=== PATIENT | female | born 1980 | race Caucasian/White ===

== ENCOUNTER 2018-01-11 14:03 | Emergency (ER) | payer MEDICAID, SELFPAY ==
[2018-01-11 14:07] VITALS: PULSE 70; RESP 16; TEMP 36.6; O2SAT 99
[2018-01-11 14:14] VITALS: BP 166/108
[2018-01-11 14:21] VITALS: BP 145/83
--- NOTE | 2018-01-11 14:28 | DI.RAD_ITS ---
SYMPTOM/DIAGNOSIS: DOG BITE, EVALUATE FOR GAS RIGHT HAND: Two views were performed. No fracture or radiopaque foreign body or gas collection is seen. Soft tissue swelling is seen around the index finger. IMPRESSION: Soft tissue swelling, no evidence of foreign body or fracture.
[2018-01-11] MEDS: Clindamycin 150 MG CAP 450 MG PO (14:35)
--- NOTE | 2018-01-11 14:38 | NUR.NOTE ---
Nursing Note: Spoke with [facility] and notified of dog bite. Faxed the report to [facility]. She will call if she has any questions. Imani Bond [place] [phone]
--- NOTE | 2018-01-11 14:42 | W.ED.GENAD ---
Discharge Plan Disposition Patient Disposition: HOME Condition: Good Discharge Details Chief Complaint: AnimalBite Clinical Impression: Cellulitis of finger Primary Care Provider: Dominic Boyle ED Provider: Paul Gauthier Home Meds and New Rx's Prescriptions: New clindamycin HCl 150 mg capsule 450 mg PO TID 10 Days Qty: 90 RF: 0 acetaminophen [Mapap Extra Strength] 500 MG tablet 1,000 mg PO Q6H 5 Days Qty: 60 RF: 0 ibuprofen [Motrin IB] 200 MG tablet 600 mg PO Q6H 5 Days Qty: 60 RF: 0 No Action ranitidine HCl [Zantac] 150 MG tablet 150 mg PO QAM RF: 0 duloxetine [Cymbalta] 60 MG capsule,delayed release(DR/EC) 60 mg PO QAM RF: 0 Discharge Instructions Instructions: Cellulitis (ED) Additional Instructions: If you notice any redness, or worsening of the pain, fever or chills please return immediately. Please follow-up with your primary care provider in the next 24-48 hours, if you cannot please follow-up here immediately for reassessment. If you notice any worsening of your symptoms, or any new symptoms such as vomiting, diarrhea, fever, chills, shortness of breath, chest pain, numbness, weakness, or fainting , please return immediately to the emergency department for reevaluation. Please follow up with your primary care provider as soon as possible for reassessment and reevaluation. As always, it was a pleasure participating in your medical care today. Referrals: Dominic Boyle [Primary Care Provider] - Medical Decision Making This is a very pleasant 37-year-old female who presents for evaluation of dog bite. She was bit on her right index finger on her dominant hand 48 hours ago. She has been placing triple antibiotic ointment on it. However she has noticed increasing pain and swelling, primarily on the dorsal aspect of her hand. Physical exam demonstrates tenderness over the extensor tendon, however no fusiform swelling of the finger, and no tenderness in the hand, or worsening of the pain with passive extension. Her signs and symptoms are clinically inconsistent with flexor tenosynovitis. The evidence of mild swelling, and tenderness I am concerned for a bacterial cellulitis with potential associated extensor tendon component. We will get an x-ray to rule out any presence of gas. The patient has tolerated azithromycin and erythromycin at home before without any complications. We will give her first dose of clindamycin here, as well as a prescription for home clindamycin. 3:36 PM X-ray has returned and per virtual radiology no foreign body seen within the soft tissues. No soft tissue air is identified. Soft tissue swelling is seen in second digit. Patient's pain is controlled, she has been given a clindamycin and during observation. Showed no signs of allergic reaction. We discussed red flags which return the patient understands. She will be following up closely with her primary care provider, however we made it clear that if she is unable to follow-up with her PCP she will return here in 24-48 hours for reevaluation. I have extensively reviewed the treatment plan and discharge instructions with the patient and their family. I have addressed all patient concerns at this time. The patient and family was made aware of what symptoms to monitor for that would warrant a return to the emergency department. Discussed the plan with the patient and family, they demonstrate verbal understanding and agreement with our assessment and plan at this time. HPI General Date/Time Provider Initiated Documentation: 01/11/18 14:28. HPI Narrative: This is a 37-year-old female with no significant past medical history who presents today for evaluation of dog bite. The patient's tetanus is up-to-date. Patient states that 48 hours ago she was bit on her dominant right hand by her own dogs while trying to break up a dog fight. The dog's immunizations are up-to-date, rabies vaccines are up-to-date, and no odd behavior on the part of the dog. The patient received 3 small bite wounds, on the dorsal and ventral aspects of her index finger on her right hand. Since then she has been placing triple antibiotic ointment on it, however she has noticed swelling over the dorsal aspect of the hand, as well as swelling of the finger, primarily on the dorsal aspect as well. She has notable pain with passive flexion of the finger which radiates to the dorsal aspect of the hand. She has no significant pain in the hand with passive extension of the finger. She denies any systemic symptoms of fevers, chills, chest pain or shortness of breath. She does have an allergy to penicillins, however in spite of what is on her allergy list she has taken azithromycin before without any complication. She denies any pain in the arm or wrist. She denies any other associated symptoms. She is not been taking any Tylenol or Motrin for the pain. She denies any relieving factors. She denies any IV or illicit drug use. She has no other complaints at this time. Related Data Home Medications Medication Instructions Recorded Confirmed duloxetine [Cymbalta] 60 mg PO QAM 11/17/14 01/11/18 ranitidine HCl [Zantac] 150 mg PO QAM 11/17/14 01/11/18 acetaminophen [Mapap Extra 1,000 mg PO Q6H 5 Days #60 tab 01/11/18 Strength] clindamycin HCl 450 mg PO TID 10 Days #90 cap 01/11/18 ibuprofen [Motrin Ib] 600 mg PO Q6H 5 Days #60 tab 01/11/18 Previous Rx's Medication Instructions Recorded acetaminophen [Mapap Extra 1,000 mg PO Q6H 5 Days #60 tab 01/11/18 Strength] clindamycin HCl 450 mg PO TID 10 Days #90 cap 01/11/18 ibuprofen [Motrin Ib] 600 mg PO Q6H 5 Days #60 tab 01/11/18 Allergies Allergy/AdvReac Type Severity Reaction Status Date / Time cefaclor [From Ceclor] Allergy Severe Anaphylaxsi Unverified 01/11/18 14:12 s erythromycin base Allergy Severe Anaphylaxsi Unverified 01/11/18 14:12 [Erythromycin Base] s Penicillins Allergy Severe Anaphylaxsi Unverified 01/11/18 14:12 s bupropion [From Wellbutrin] Allergy Intermediate Dizziness/L Unverified 01/11/18 14:12 ightheade morphine AdvReac Intermediate Nausea Unverified 01/11/18 14:12 General Stated Complaint: AnimalBite SHERI: 4 Review of Systems Review of Systems All systems reviewed & are unremarkable except as noted in HPI and below PFSH Social History Smoking/Tobacco Use Status: Former Tobacco Use Exam Narrative Exam Narrative: 1.Const: Well-nourished, Well-developed, appearing stated age 2.Eyes: PERRL, no conjunctival injection, and symmetrical lids. 3.ENT: Atraumatic external nose and ears. Moist MM. Neck: Symmetric, trachea midline, No thyromegaly. 4.CVS: +S1/S2, No murmurs or gallops. Peripheral pulses 2+ and equal in all extremities. Brisk capillary refill in all extremities. 5.RESP: Unlabored respiratory effort. Clear to auscultation bilaterally. No wheezes rales or rhonchi 6.GI: Soft, Nontender/Nondistended, No hepatosplenomegaly. No guarding or rebound. 7.MSK: Normocephalic patient demonstrates normal upper and lower extremities except for evaluation of the right hand. On the right hand she has 3 very small puncture wounds which seem to have healed over already through secondary intention. Mild swelling throughout the index finger on her right hand, as well as associated mild swelling over the dorsal aspect of her hand proximal to the index finger. No evidence of fusiform swelling or sausage digit of the finger. Patient demonstrates pain on palpation of the dorsal aspect of the hand over the extensor tendon, as well as tenderness on the finger itself. Pain is worsened with passive flexion of the finger, causing reproducible pain in the dorsal aspect of the hand. There is no pain elicited with passive extension of the finger and stretching of the flexor tendon. No signs or symptoms suggestive of flexor tenosynovitis. No active drainage. Capillary refill is brisk, sensation is intact. No evidence of erythema on the hand, or creeping up the wrist with a forearm. Patient demonstrates 5 out of 5 strength in her upper and lower extremities, including excellent flexion extension of the finger apposition and pinching of the thumb and index finger, and other movements of the finger. No evidence of fluctuance or signs of abscess. 8.Skin: Warm, Dry. 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 Sensation grossly intact, no focal neurologic deficits. 10.Psych: (AAO) x3. Appropriate mood and affect Course Vital Signs Temperature 36.6 C 01/11/18 14:07 Pulse 70 01/11/18 14:07 Respiratory Rate 16 01/11/18 14:07 Pulse Oximetry 99 01/11/18 14:07 Temperature 36.6 C 01/11/18 14:07 Temperature Source Skin 01/11/18 14:07 Pulse 70 01/11/18 14:07 Respiratory Rate 16 01/11/18 14:07 Respiratory Effort Non-Labored 01/11/18 14:13 Blood Pressure 145/83 H 01/11/18 14:21 Pulse Oximetry 99 01/11/18 14:07 Pain Level 9 01/11/18 14:07
[2018-01-11] MEDS: Ibuprofen 800 MG TAB PO (15:13)
[2018-01-11] MEDS: Acetaminophen 500 MG TAB 1000 MG PO (15:14)
--- NOTE | 2018-01-11 15:34 | DI.VRAD_ITS ---
EXAM: XR Right Hand, 2 Views CLINICAL HISTORY: 37 years old, female; Injury or trauma; Injury Dog bite; Initial encounter; Finger; Index finger; Right; Additional info: Eval for gas on dorsal aspect TECHNIQUE: Frontal and lateral views of the right hand. COMPARISON: No relevant prior studies available. FINDINGS: Bones/joints: No fracture or dislocation. Soft tissues: No foreign body seen within the soft tissues. No soft tissue air identified. Soft tissue swelling is seen in second digit. IMPRESSION: No foreign body seen within the soft tissues. No soft tissue air identified. Soft tissue swelling is seen in second digit. Dictated and Authenticated by: Harvinder Arvizu MD. Ordering:MATT BEATTY MD
== END 2018-01-11 15:45 | disposition home or self-care (01) ==
PROVIDERS: Emergency Provider Student in an Organized Health Care Education/Training Program; PCP Family Medicine
DX: S61.250A Open bite of right index finger without damage to nail, initial encounter (principal); L03.011 Cellulitis of right finger; W54.0XXA Bitten by dog, initial encounter
CPT/HCPCS: 99283; 73120

== ENCOUNTER 2018-01-13 08:41 | Emergency (ER) | payer MEDICAID, SELFPAY ==
[2018-01-13 08:54] VITALS: BP 143/81; PULSE 78; RESP 12; TEMP 36.8; O2SAT 95
--- NOTE | 2018-01-13 09:37 | W.ED.GENAD ---
Discharge Plan Disposition Patient Disposition: HOME Condition: Fair Discharge Details Chief Complaint: Recheck Clinical Impression: Dog bite Primary Care Provider: Dominic Boyle ED Provider: Mihaela Echeverria Home Meds and New Rx's Prescriptions: New doxycycline hyclate 100 mg tablet 100 mg PO BID Qty: 14 RF: 0 Continue ranitidine HCl [Zantac] 150 MG tablet 150 mg PO QAM RF: 0 duloxetine [Cymbalta] 60 MG capsule,delayed release(DR/EC) 60 mg PO QAM RF: 0 acetaminophen [Mapap Extra Strength] 500 MG tablet 1,000 mg PO Q6H 5 Days Qty: 60 RF: 0 ibuprofen [Motrin IB] 200 MG tablet 600 mg PO Q6H 5 Days Qty: 60 RF: 0 Discontinued clindamycin HCl 150 mg capsule 450 mg PO TID 10 Days Qty: 90 RF: 0 Discharge Instructions Instructions: Animal Bite (ED) Additional Instructions: Encourage hydration. Please continue with ibuprofen as you have been. Encourage rest, ice, elevation. Continue with splint until evaluated by orthopedics. Please call orthopedics today to schedule follow-up appointment. If you develop fever/chills, increased swelling, redness, discharge or the new/worsening symptoms please seek care urgently once again. Please stop the clindamycin begin the doxycycline as prescribed. Stand Alone Forms: Work Release Referrals: Dave Ordaz MD [ [facility] STAFF PHYSICIAN] - ([phone]) Discharge Data Discharge Date/Time-TO BE ENTERED AT DEPARTURE: 01/13/18 11:01 Medical Decision Making Patient 37-year-old right-hand dominant female presents today for recheck of dog bite to the right index finger. Patient was seen here 2 days ago at which time she was begun on clindamycin. At that time she was seen here, have been a few days since the time of the bite. At that point, the erythema around the wound was consistent with cellulitis. Patient did not have any discomfort with passive extension of the digit. She reports the pain has remained consistent since being seen 2 days ago but is increased with movement. On exam today, I am concerned that she does have passive range of motion discomfort, particular with extension. Pain is now radiating proximally over the MCP joint of the affected digit. No pain with range of motion of the wrist. Erythema sensitive from subsided compared with was noted on Friday. She denies any fevers or chills. Has been taking the clindamycin as prescribed. Denies any other other systemic symptoms of illness. We will obtain laboratory evaluation and consult with orthopedics Consulted with Dr. Ordaz and discussed the patient's presenting symptoms and continued pain. He will come to evaluate the patient. Dr. Ordaz evaluated the patient. Feels that with passive range of motion she is not having discomfort. Overall, fingers appearing much improved. Does not feel at this point that she is exhibiting findings suggestive of extensor is a virus, he did advise changing her antibiotic and splinting the patient. Patient will be changed to doxycycline. Patient was splinted in extension. Encourage rest, ice, elevation. He plan to see the patient in his clinic in 3 days. I discussed this plan with the patient at length. We discussed new/worsening symptoms when to seek care urgently once again. We also discussed possible side effects associated with the doxycycline. All his questions and concerns were addressed and she is in agreement with this plan. She will contact orthopedics office today to schedule upcoming appointment in [address] Ordaz for reevaluation. HPI General Mode of arrival: ambulatory. Date/Time Provider Initiated Documentation: 01/13/18 09:16. Limitations to Documentation: no limitations. Information obtained by: patient. History of Present Illness 37 year old F presents to the emergency department with the chief complaint of right index finger, described as moderate, with intensity rated at 8. Quality is described as stabbing and aching, and is localized to the right and upper extremity. Patient proximal. Patient started experiencing this day(s) and it has been constant. Immobilization improves symptom(s), Movement worsens symptoms . Patient notes no other symptoms.; denies fever/chills, malaise and rash (reports that erythema has improved). Patient did receive the following treatments prior to arrival, other (has been on Clindamycin) Related Data Home Medications Medication Instructions Recorded Confirmed duloxetine [Cymbalta] 60 mg PO QAM 11/17/14 01/15/18 ranitidine HCl [Zantac] 150 mg PO QAM 11/17/14 01/15/18 acetaminophen [Mapap Extra 1,000 mg PO Q6H 5 Days #60 tab 01/11/18 01/15/18 Strength] ibuprofen [Motrin IB] 600 mg PO Q6H 5 Days #60 tab 01/11/18 01/15/18 doxycycline hyclate 100 mg PO BID #14 tab 01/13/18 01/15/18 Previous Rx's Medication Instructions Recorded acetaminophen [Mapap Extra 1,000 mg PO Q6H 5 Days #60 tab 01/11/18 Strength] ibuprofen [Motrin IB] 600 mg PO Q6H 5 Days #60 tab 01/11/18 doxycycline hyclate 100 mg PO BID #14 tab 01/13/18 Allergies Allergy/AdvReac Type Severity Reaction Status Date / Time cefaclor [From Ceclor] Allergy Severe Anaphylaxsi Unverified 01/15/18 10:57 s erythromycin base Allergy Severe Anaphylaxsi Unverified 01/15/18 10:57 [Erythromycin Base] s Penicillins Allergy Severe Anaphylaxsi Unverified 01/15/18 10:57 s bupropion [From Wellbutrin] Allergy Intermediate Dizziness/L Unverified 01/15/18 10:57 ightheade morphine AdvReac Intermediate Nausea Unverified 01/15/18 10:57 General Stated Complaint: Recheck SHERI: 5 Review of Systems Constitutional Reports as per HPI, Denies chills, Denies fever(s) and Denies weakness Cardiovascular Denies chest pain and Denies dyspnea Respiratory Denies cough and Denies dyspnea Musculoskeletal Reports as per HPI, Denies numbness and Denies tingling Integumentary/Breasts Reports as per HPI Neurologic Denies numbness, Denies tingling and Denies weakness [facility] Social History Smoking/Tobacco Use Status: Former Tobacco Use Exam Const General: cooperative, healthy appearing, comfortable, no acute distress, well developed and well groomed Nutritional Appearance: average body habitus and well nourished Orientation: alert and awake Resp Effort & Inspection: normal respiratory effort, able to speak in complete sentences and no respiratory distress Auscultation: clear to auscultation bilaterally, no rales, no rhonchi and no wheezes Cardio Rate: regular rate Rhythm: regular rhythm Heart Sounds: S1 normal and S2 normal Skin General skin exam: no ecchymosis and no erythema Trauma: puncture (patient ahs 3 puncture wounds, appear to be healing well. No erythema, warmth or drainage. Digit is swollen circumfrentially) Neuro General: alert and awake Cognition: normal cognition Speech: speech normal Gait: normal gait Sensory Exam: no sensory deficits noted Extrem Right upper extremity: normal capillary refill; abnormal to inspection (as above), ROM limited (limited flexion, possibly associated with swelling) and no cyanosis Psych Appearance: grossly normal and well kempt Mental Status: mental status grossly normal Speech and Movement: speech and movement normal Mood: congruent mood Course Vital Signs Temperature 36.8 C 01/13/18 08:54 Pulse 78 01/13/18 08:54 Respiratory Rate 12 01/13/18 08:54 Blood Pressure 143/81 H 01/13/18 08:54 Pulse Oximetry 95 01/13/18 08:54 Temperature 36.8 C 01/13/18 08:54 Temperature Source Temporal Artery Scan 01/13/18 08:54 Pulse 78 01/13/18 08:54 Respiratory Rate 12 01/13/18 08:54 Respiratory Effort Non-Labored 01/13/18 08:57 Blood Pressure 143/81 H 01/13/18 08:54 Pulse Oximetry 95 01/13/18 08:54 Oxygen Delivery Method Room Air 01/13/18 08:54 Oxygen Flow Rate 0 01/13/18 08:54 Pain Level 8 01/13/18 08:54
--- NOTE | 2018-01-13 09:41 | ED.GENADUL_ITS ---
Discharge Plan Disposition Patient Disposition: HOME Condition: Fair Discharge Details Chief Complaint: Recheck Clinical Impression: Dog bite Primary Care Provider: Dominic Boyle ED Provider: Mihaela Echeverria Home Meds and New Rx's Prescriptions: New doxycycline hyclate 100 mg tablet 100 mg PO BID Qty: 14 RF: 0 Continue ranitidine HCl [Zantac] 150 MG tablet 150 mg PO QAM RF: 0 duloxetine [Cymbalta] 60 MG capsule,delayed release(DR/EC) 60 mg PO QAM RF: 0 acetaminophen [Mapap Extra Strength] 500 MG tablet 1,000 mg PO Q6H 5 Days Qty: 60 RF: 0 ibuprofen [Motrin IB] 200 MG tablet 600 mg PO Q6H 5 Days Qty: 60 RF: 0 Discontinued clindamycin HCl 150 mg capsule 450 mg PO TID 10 Days Qty: 90 RF: 0 Discharge Instructions Instructions: Animal Bite (ED) Additional Instructions: Encourage hydration. Please continue with ibuprofen as you have been. Encourage rest, ice, elevation. Continue with splint until evaluated by orthopedics. Please call orthopedics today to schedule follow-up appointment. If you develop fever/chills, increased swelling, redness, discharge or the new/ worsening symptoms please seek care urgently once again. Please stop the clindamycin begin the doxycycline as prescribed. Stand Alone Forms: Work Release Referrals: Dave Ordaz MD [ [facility] STAFF PHYSICIAN] - ([phone]) Discharge Data Discharge Date/Time-TO BE ENTERED AT DEPARTURE: 01/13/18 11:01 Medical Decision Making Patient 37-year-old right-hand dominant female presents today for recheck of dog bite to the right index finger. Patient was seen here 2 days ago at which time she was begun on clindamycin. At that time she was seen here, have been a few days since the time of the bite. At that point, the erythema around the wound was consistent with cellulitis. Patient did not have any discomfort with passive extension of the digit. She reports the pain has remained consistent since being seen 2 days ago but is increased with movement. On exam today, I am concerned that she does have passive range of motion discomfort, particular with extension. Pain is now radiating proximally over the MCP joint of the affected digit. No pain with range of motion of the wrist. Erythema sensitive from subsided compared with was noted on Friday. She denies any fevers or chills. Has been taking the clindamycin as prescribed. Denies any other other systemic symptoms of illness. We will obtain laboratory evaluation and consult with orthopedics Consulted with Dr. Ordaz and discussed the patient's presenting symptoms and continued pain. He will come to evaluate the patient. Dr. Ordaz evaluated the patient. Feels that with passive range of motion she is not having discomfort. Overall, fingers appearing much improved. Does not feel at this point that she is exhibiting findings suggestive of extensor is a virus, he did advise changing her antibiotic and splinting the patient. Patient will be changed to doxycycline. Patient was splinted in extension. Encourage rest, ice, elevation. He plan to see the patient in his clinic in 3 days. I discussed this plan with the patient at length. We discussed new/ worsening symptoms when to seek care urgently once again. We also discussed possible side effects associated with the doxycycline. All his questions and concerns were addressed and she is in agreement with this plan. She will contact orthopedics office today to schedule upcoming appointment in [address] Ordaz for reevaluation. HPI General Mode of arrival: ambulatory . Date/Time Provider Initiated Documentation: 01/13/18 09:16 . Limitations to Documentation: no limitations . Information obtained by: patient . History of Present Illness 37 year old F presents to the emergency department with the chief complaint of right index finger, described as moderate, with intensity rated at 8. Quality is described as stabbing and aching, and is localized to the right and upper extremity. Patient proximal. Patient started experiencing this day (s) and it has been constant. Immobilization improves symptom(s), Movement worsens symptoms . Patient notes no other symptoms.; denies fever/ chills, malaise and rash (reports that erythema has improved). Patient did receive the following treatments prior to arrival, other (has been on Clindamycin) Related Data Home Medications Medication Instructions Recorded Confirmed duloxetine [Cymbalta] 60 mg PO QAM 11/17/14 01/15/18 ranitidine HCl [Zantac] 150 mg PO QAM 11/17/14 01/15/18 acetaminophen [Mapap Extra 1,000 mg PO Q6H 5 Days #60 tab 01/11/18 01/15/18 Strength] ibuprofen [Motrin IB] 600 mg PO Q6H 5 Days #60 tab 01/11/18 01/15/18 doxycycline hyclate 100 mg PO BID #14 tab 01/13/18 01/15/18 Previous Rx's Medication Instructions Recorded acetaminophen [Mapap Extra 1,000 mg PO Q6H 5 Days #60 tab 01/11/18 Strength] ibuprofen [Motrin IB] 600 mg PO Q6H 5 Days #60 tab 01/11/18 doxycycline hyclate 100 mg PO BID #14 tab 01/13/18 Allergies Allergy/AdvReac Type Severity Reaction Status Date / Time cefaclor [From Ceclor] Allergy Severe Anaphylaxsi Unverified 01/15/18 10:57 s erythromycin base Allergy Severe Anaphylaxsi Unverified 01/15/18 10:57 [Erythromycin Base] s Penicillins Allergy Severe Anaphylaxsi Unverified 01/15/18 10:57 s bupropion [From Wellbutrin] Allergy Intermediate Dizziness/L Unverified 10:57 ightheade morphine AdvReac Intermediate Nausea Unverified 01/15/18 10:57 General Stated Complaint: Recheck SHERI: 5 Review of Systems Constitutional Reports as per HPI, Denies chills, Denies fever(s) and Denies weakness Cardiovascular Denies chest pain and Denies dyspnea Respiratory Denies cough and Denies dyspnea Musculoskeletal Reports as per HPI, Denies numbness and Denies tingling Integumentary/Breasts Reports as per HPI Neurologic Denies numbness, Denies tingling and Denies weakness [facility] Social History Smoking/Tobacco Use Status: Former Tobacco Use Exam Const General: cooperative, healthy appearing, comfortable, no acute distress, well developed and well groomed Nutritional Appearance: average body habitus and well nourished Orientation: alert and awake Resp Effort & Inspection: normal respiratory effort, able to speak in complete sentences and no respiratory distress Auscultation: clear to auscultation bilaterally, no rales, no rhonchi and no wheezes Cardio Rate: regular rate Rhythm: regular rhythm Heart Sounds: S1 normal and S2 normal Skin General skin exam: no ecchymosis and no erythema Trauma: puncture (patient ahs 3 puncture wounds, appear to be healing well. No erythema, warmth or drainage. Digit is swollen circumfrentially) Neuro General: alert and awake Cognition: normal cognition Speech: speech normal Gait: normal gait Sensory Exam: no sensory deficits noted Extrem Right upper extremity: normal capillary refill; abnormal to inspection (as above ), ROM limited (limited flexion, possibly associated with swelling) and no cyanosis Psych Appearance: grossly normal and well kempt Mental Status: mental status grossly normal Speech and Movement: speech and movement normal Mood: congruent mood Course Vital Signs Temperature 36.8 C 01/13/18 08:54 Pulse 78 01/13/18 08:54 Respiratory Rate 12 01/13/18 08:54 Blood Pressure 143/81 H 01/13/18 08:54 Pulse Oximetry 95 01/13/18 08:54 Temperature 36.8 C 01/13/18 08:54 Temperature Source Temporal Artery Scan 01/13/18 08:54 Pulse 78 01/13/18 08:54 Respiratory Rate 12 01/13/18 08:54 Respiratory Effort Non-Labored 01/13/18 08:57 Blood Pressure 143/81 H 01/13/18 08:54 Pulse Oximetry 95 01/13/18 08:54 Oxygen Delivery Method Room Air 01/13/18 08:54 Oxygen Flow Rate 0 01/13/18 08:54 Pain Level 8 01/13/18 08:54
[2018-01-13 10:13] LABS: Abs Immature Grans 0.06 k/cumm (0.0-0.09); Absolute Basophil Count 0.05 k/cumm (0.0-0.2); Absolute Eosinophil Count 0.14 k/cumm (0.0-0.7); Absolute Lymphocyte Count 3.58 k/cumm (1.2-3.4); Absolute Monocyte Count 0.74 k/cumm (0.11-0.7); Absolute Neutrophil Count 7.32 k/cumm (1.2-6.7); Basophils % 0.4; Eosinophils % 1.2; HCT 41.2 % (36.0-46.0); HGB 13.6 g/dL (12.0-15.5); Immature Grans % 0.5; Lymphocytes % 30.1; Mean Corpuscular Hemoglobin 28.2 pg (27.0-33.0); Mean Corpuscular Volume 85.5 fL (80-95); Mean Platelet Volume 8.9 fL (8.0-11.0); Monocytes % 6.2; Neutrophils % 61.6; Platelet Count 414 x1000/uL (130-400); RBC 4.82 m/cumm (4.00-5.20); RBC Distribution Width 13.3 % (11.7-14.6); White Blood Cell Count 11.89 k/cumm (4.4-10.8)
[2018-01-13 10:25] LABS: ALT 28 U/L (12-78); AST 12 U/L (15-37); Albumin 3.7 g/dL (3.4-5.0); Alkaline Phosphatase 65 U/L (46-116); BUN 12 mg/dL (7-18); Bilirubin, Total 0.2 mg/dL (0.2-1.0); C-Reactive Protein 0.45 mg/dL (0.0-0.3); CREATININE 0.63 mg/dL (0.55-1.02); Calcium 9.3 mg/dL (8.5-10.1); Chloride 102 mmol/L (98-107); Glucose 82 mg/dL (70-100); Potassium 4.5 mmol/L (3.5-5.1); Sodium 137 mmol/L (136-145); Total Protein 7.7 g/dL (6.4-8.2)
[2018-01-13 11:03] LABS: ESR 14 MM/HR (0-20)
== END 2018-01-13 11:01 | disposition home or self-care (01) ==
PROVIDERS: Emergency Provider Physician Assistant; PCP Family Medicine
DX: S61.250A Open bite of right index finger without damage to nail, initial encounter (principal); W54.0XXA Bitten by dog, initial encounter; I10 Essential (primary) hypertension
CPT/HCPCS: 29130; 36415; 80053; 85652; 99283; 85025; 86140

== ENCOUNTER 2023-02-27 09:03 | Emergency (ER) | payer SELFPAY ==
[2023-02-27 09:14] VITALS: BP 179/98; PULSE 90; RESP 18; O2SAT 99
--- NOTE | 2023-02-27 09:36 | DI.CT_ITS ---
Exam(s) CT ABDOMEN PELVIS W EXAM: CT ABDOMEN PELVIS W CLINICAL HISTORY: left upper quadrant pain. TECHNIQUE: Imaging Protocol: Axial computed tomography images with coronal and sagittal reformatted images were created and reviewed CONTRAST MATERIAL: Intravenous: Omnipaque 350 Contrast volume:100 ml Oral: no COMPARISON: CT ABD PELVIS WITH CONTRAST from 11/17/2014 FINDINGS: ABDOMEN and PELVIS: Lung Bases: No acute findings. Liver: Normal density. No measurable mass. Gallbladder and biliary tract: Status post cholecystectomy. No radiodense calculus or dilation. Pancreas: Normal density. No abnormal calcifications or inflammatory process. No evidence of mass. Spleen: Normal. Kidneys: Normal size, contour and axis. No radiodense stones. No obstructive uropathy. 2.4 x 2.2 by 1.1 cm exophytic mass at the posterior aspect of the right kidney. Not present on prior exam. There appear to be enhancing components. Adrenal glands: No masses seen. Vasculature: Abdominal aorta non-dilated. Soft tissues: Unremarkable. Bladder: No gross wall thickening. No calculi.No focal mass. Bowel: Mild diverticulosis. No evidence of diverticulitis. No obstruction. No bowel wall thickeni ng. Appendix normal. Peritoneal cavity: No ascites. No focal collection or mesenteric inflammatory response. Bones: Unremarkable for age. Reproductive organs: Status post hysterectomy. Lymph nodes: Unremarkable. IMPRESSION:: Right renal mass. Evaluation with MRI recommended. Diverticulosis without evidence of diverticulitis. Findings called to Lynda Kraft of the emergency department. RADIATION DOSE DELIVERED: Total DLP DATA REPOSITORY: All CT scans at this facility are submitted to the National Radiology Data Registry (NRDR) Dose Index Registry (DIR) with the [employer] [place] [employer] [employer] (ACR). RADIATION OPTIMIZATION: All CT scans at this facility use at least one of these dose optimization te chniques: automated exposure control; mA and/or kV adjustment per patient size (includes targeted exa ms where dose is matched to clinical indication); or iterative reconstruction.
[2023-02-27 10:04] LABS: Bilirubin Negative (Negative); Blood Small (Negative); Clarity Clear (Clear); Glucose Negative (Negative); Ketones Negative (Negative); Leukocyte Esterase Negative (Negative); Nitrite Negative (Negative); Specific Gravity 1.015 (1.005-1.025); Urobilinogen 0.2 mg/dL (Up to 0.2)
[2023-02-27 10:10] LABS: Bacteria Few HPF (Negative); C & S Indicated? No/Sq. Contamination; Casts Negative LPF (Negative); Crystals Negative HPF (Negative); Epithelial Cells Many HPF (Negative); Mucus Trace (Negative); WBC 0-2 HPF (0-5)
[2023-02-27] MEDS: fentaNYL 100 MCG/2 ML VIAL 50 MCG IVP (10:20)
[2023-02-27 10:31] LABS: Abs Immature Grans 0.08 10^3/uL (0.0-0.06); Absolute Basophil Count 0.07 10^3/uL (0.0-0.2); Absolute Eosinophil Count 0.13 10^3/uL (0.0-0.7); Absolute Lymphocyte Count 2.44 10^3/uL (1.2-3.4); Absolute Monocyte Count 1.26 10^3/uL (0.1-0.8); Absolute Neutrophil Count 14.53 10^3/uL (1.2-6.7); Basophils % 0.4; Eosinophils % 0.7; HCT 41.1 % (36.0-46.0); HGB 13.7 g/dL (11.2-15.7); Immature Grans % 0.4; Lymphocytes % 13.2; MCH 27.5 pg (27.0-33.0); MCHC 33.3 % (32.0-36.0); MCV 83 fL (80-95); MPV 8.7 fL (8.0-11.0); Monocytes % 6.8; Neutrophils % 78.5; Platelet Count 411 10^3/uL (130-400); RBC 4.98 10^6/uL (3.93-5.22); RDW 13.1 % (11.7-14.6); RDW-SD 39.1 fL; WBC 18.51 10^3/uL (4.4-10.8)
[2023-02-27] MEDS: Normal Saline - Diluent 50 ML VIAL IJ (10:35)
[2023-02-27] MEDS: Omnipaque 350 MG/ML 500 ML BTL-Imaging package IJ (10:38)
[2023-02-27 10:46] LABS: ALT 28 U/L (14-59); AST 16 U/L (15-37); Albumin 3.7 g/dL (3.4-5.0); Alkaline Phosphatase 69 U/L (46-116); Anion Gap 9.1 mmol/L (3-11); BUN 11 mg/dL (7-18); Bilirubin, Total 0.5 mg/dL (0.2-1.0); CO2 26.9 mmol/L (21.0-32.0); CREATININE 0.7 mg/dL (0.55-1.02); Calcium 9.1 mg/dL (8.5-10.1); Chloride 103 mmol/L (98-107); Estimated GFR 109.98 (mL/min/1.73m2); Glucose 94 mg/dL (74-106); Lipase 21 U/L (16-77); Potassium 3.9 mmol/L (3.5-5.1); Sodium 139 mmol/L (136-145); Total Protein 7.8 g/dL (6.4-8.2)
--- NOTE | 2023-02-27 11:23 | W.ED.GENAD ---
Discharge Plan Disposition Patient Disposition: Home Discharge Details Clinical Impression: Mass of kidney, Leukocytosis, Abdominal pain Primary Care Provider: Dominic Boyle ED Provider: Lynda Kraft Home Meds and New Rx's Prescriptions: New ciprofloxacin HCl 500 mg tablet 500 mg PO Q12H Qty: 14 0RF metronidazole 500 mg tablet 500 mg PO Q8H 7 Days Qty: 21 0RF Continued Zantac 150 MG tablet 150 mg PO QAM duloxetine [Cymbalta] 60 MG capsule,delayed release(DR/EC) 60 mg PO QAM Discharge Instructions Instructions: Leukocytosis (ED), Abdominal Pain (ED) Additional Instructions: Take antibiotic as prescribed Yogurt daily while on the antibiotics You have a mass on your right kidney, who is very important that you discuss this finding with your doctor as you may need further imaging and biopsy at their discretion Care management is involved to be sure that you have close outpatient reassessment I also recommend calling the general surgeon tomorrow to be reevaluated as you do have a high white blood cell count and abdominal pain If your pain becomes worse or you develop a fever you should return to the emergency department immediately Referrals: Minerva Carter DO [OSTEOPATHIC DOCTOR] - Discharge Data Discharge Date/Time-TO BE ENTERED AT DEPARTURE: 02/27/23 12:07 Medical Decision Making 42-year-old female presenting with abdominal pain, leukocytosis, 18,000, CT does not show evidence of acute abnormality from an infection standpoint per Dr. Singh discussion and review She does have a renal mass, she will need close outpatient reassessment, care management was contacted as patient's PCP has retired She will need close outpatient management of this renal mass and we will establish care urgently She will be placed on surgery list for follow-up within 24 hours for leukocytosis and abdominal pain for reassessment, discussed with Dr. Gill She is been placed on surgery list for tomorrow Urinalysis without evidence of acute abnormality, abdominal exam with tenderness left upper quadrant, no rebound or guarding, no evidence of acute abdomen clinically Patient is going to call surgery tomorrow for reevaluation and take Cipro and Flagyl at home She will return earlier should she have new or worsening complaints Of note she has an appointment on March 06 at 8 AM to see a primary care physician and review CT findings including renal mass that will need close outpatient assessment HPI General Date/Time Provider Initiated Documentation: 02/27/23 09:28. HPI Narrative: This 42-year-old female presents with report for abdominal pain which started approximately 4 weeks ago. Denies any known exacerbating or relieving factors. States it has been coming and going until yesterday and now has been constant. Denies any nausea or vomiting. Feels constipated. Denies any chance of or history of similar pain in the past. Has not taken any [id number] medication. Some urinary frequency associated with it. Denies any risk of sexually transmitted disease. Related Data Home Medications Medication Instructions Recorded Confirmed duloxetine 60 mg capsule,delayed 60 mg PO QAM 11/17/14 02/28/23 release (Cymbalta) ranitidine HCl 150 mg tablet 150 mg PO QAM 11/17/14 02/28/23 (Zantac) ciprofloxacin HCl 500 mg tablet 500 mg PO Q12H #14 tabs 02/27/23 02/28/23 metronidazole 500 mg tablet 500 mg PO Q8H 7 days #21 tabs 02/27/23 02/28/23 Previous Rx's Medication Instructions Recorded ciprofloxacin HCl 500 mg tablet 500 mg PO Q12H #14 tabs 02/27/23 metronidazole 500 mg tablet 500 mg PO Q8H 7 days #21 tabs 02/27/23 Allergies Allergy/AdvReac Type Severity Reaction Status Date / Time cefaclor [From Ceclor] Allergy Severe Anaphylaxsi Unverified 02/28/23 11:48 s erythromycin base Allergy Severe Anaphylaxsi Unverified 02/28/23 11:48 [Erythromycin Base] s Penicillins Allergy Severe Anaphylaxsi Unverified 02/28/23 11:48 s bupropion [From Wellbutrin] Allergy Intermediate Dizziness/L Unverified 02/28/23 11:48 ightheade morphine AdvReac Intermediate Nausea Unverified 02/28/23 11:48 General Stated Complaint: Abd Prob SHERI: 3 PFSH All Active Problems (Updated 02/28/23 @ 12:57 by Marion Rodrigez MD) Abdominal pain (Acute) Leukocytosis (Acute) Mass of kidney (Acute) Acute cholecystitis (Active 11/24/12) Laparoscopic cholecystectomy and intra-operative cholangiogram by Dr. Horowitz on 11-24-2012. Social History Smoking/Tobacco Use Status: Former Tobacco Use Smoking risk assessment performed?: Yes Alcohol Intake: former Drug use: Never Substance use type: does not use Do you feel safe in your relationship?: Yes Course Vital Signs Vital signs: Vital Signs Pulse 90 02/27/23 09:14 Respiratory Rate 18 02/27/23 09:14 Blood Pressure 179/98 H 02/27/23 09:14 Pulse Oximetry 99 02/27/23 09:14 Pulse 90 02/27/23 09:14 Respiratory Rate 18 02/27/23 09:14 Respiratory Effort Normal, Non-Labored 02/27/23 10:46 Blood Pressure 179/98 H 02/27/23 09:14 Pulse Oximetry 99 02/27/23 09:14 Pain Level 8 02/27/23 10:27 Lab/Test Results Lab/Test Results: Laboratory Tests Range/Units 02/27/23 02/27/23 09:21 10:20 WBC (4.4-10.8) 10^3/uL 18.51 H RBC (3.93-5.22) 10^6/uL 4.98 Hgb (11.2-15.7) g/dL 13.7 Hct (36.0-46.0) % 41.1 MCV (80-95) fL 83 MCH (27.0-33.0) pg 27.5 MCHC (32.0-36.0) % 33.3 RDW (11.7-14.6) % 13.1 Plt Count (130-400) 10^3/uL 411 H MPV (8.0-11.0) fL 8.7 Immature Gran % 0.4 Neutrophils % 78.5 Lymphocytes % 13.2 Monocytes % 6.8 Eosinophils % 0.7 Basophils % 0.4 Nucleated RBC % (0.0-0.3) % 0.0 Absolute Neutrophils (1.2-6.7) 10^3/uL 14.53 H Absolute Lymphocytes (1.2-3.4) 10^3/uL 2.44 Absolute Monocytes (0.1-0.8) 10^3/uL 1.26 H Absolute Eosinophils (0.0-0.7) 10^3/uL 0.13 Absolute Basophils (0.0-0.2) 10^3/uL 0.07 Sodium (136-145) mmol/L 139 Potassium (3.5-5.1) mmol/L 3.9 Chloride (98-107) mmol/L 103 Carbon Dioxide (21.0-32.0) mmol/L 26.9 Anion Gap (3-11) mmol/L 9.1 BUN (7-18) mg/dL 11 Creatinine (0.55-1.02) mg/dL 0.7 Est GFR (CKD-EPI 2020) (mL/min/1.73m2) 109.98 Glucose (74-106) mg/dL 94 Calcium (8.5-10.1) mg/dL 9.1 Total Bilirubin (0.2-1.0) mg/dL 0.5 AST (15-37) U/L 16 ALT (14-59) U/L 28 Alkaline Phosphatase (46-116) U/L 69 Total Protein (6.4-8.2) g/dL 7.8 Albumin (3.4-5.0) g/dL 3.7 Lipase (16-77) U/L 21 Urine Color (Yellow) Yellow Urine Clarity (Clear) Clear Urine pH (5-8) 7.0 Ur Specific [place] (1.005-1.025) 1.015 Urine Protein (Negative) mg/dL Negative Urine Ketones (Negative) mg/dL Negative Urine Blood (Negative) Small H Urine Nitrite (Negative) Negative Urine Bilirubin (Negative) Negative Urine Urobilinogen (Up to 0.2) mg/dL 0.2 Ur Leukocyte Esterase (Negative) Negative Urine RBC (0-2) HPF 5-10 H Urine WBC (0-5) HPF 0-2 Ur Epithelial Cells (Negative) HPF Many Urine Crystals (Negative) HPF Negative Urine Bacteria (Negative) HPF Few Urine Casts (Negative) LPF Negative Urine Mucus (Negative) Trace Ur Culture Indicated? No/Sq. Contamination Urine Glucose (Negative) mg/dL Negative
--- NOTE | 2023-02-27 14:27 | NUR.NOTE ---
Referral faxed for a follow up with Surgical. She has abdomen pain and elevated white blood cells. Dr would like PT to be seen withing 24 hours. Referral also faxed to [facility] for help establishing primary care due to a Renal Mass. would like her to be seen VIANNEY
== END 2023-02-27 12:07 | disposition home or self-care (01) ==
PROVIDERS: Emergency Provider Physician Assistant; PCP Family Medicine
DX: R10.32 Left lower quadrant pain (principal); N28.89 Other specified disorders of kidney and ureter; D72.829 Elevated white blood cell count, unspecified; Z87.891 Personal history of nicotine dependence
CPT/HCPCS: 36415; 80053; 83690; 96374; 99285; 74177; 81003; 81015; 85025; 99284; J3010

== ENCOUNTER 2023-02-28 22:08 | Outpatient (CLI) | payer SELFPAY ==
[2023-02-28 11:21] LABS: Abs Immature Grans 0.04 10^3/uL (0.0-0.06); Absolute Eosinophil Count 0.14 10^3/uL (0.0-0.7); Absolute Monocyte Count 0.72 10^3/uL (0.1-0.8); Basophils % 0.5; Eosinophils % 1.3; HCT 43.8 % (36.0-46.0); HGB 14.5 g/dL (11.2-15.7); Immature Grans % 0.4; Lymphocytes % 28.4; MCH 27.5 pg (27.0-33.0); MCHC 33.1 % (32.0-36.0); MCV 83 fL (80-95); MPV 8.9 fL (8.0-11.0); Monocytes % 6.5; Neutrophils % 62.9; Platelet Count 332 10^3/uL (130-400); RBC 5.28 10^6/uL (3.93-5.22); RDW-SD 39.2 fL; WBC 11.04 10^3/uL (4.4-10.8)
[2023-02-28 11:23] LABS: Absolute Basophil Count 0.06 10^3/uL (0.0-0.2); Absolute Lymphocyte Count 3.14 10^3/uL (1.2-3.4); Absolute Neutrophil Count 6.94 10^3/uL (1.2-6.7)
[2023-02-28 11:24] LABS: Bilirubin Negative (Negative); Blood Trace-intact (Negative); Clarity Clear (Clear); Glucose Negative (Negative); Ketones Negative (Negative); Leukocyte Esterase Negative (Negative); Nitrite Negative (Negative); Urobilinogen 0.2 mg/dL (Up to 0.2); pH 6.5 (5-8)
[2023-02-28 11:35] LABS: Bacteria Few HPF (Negative); C & S Indicated? No; Casts Negative LPF (Negative); Crystals Negative HPF (Negative); Epithelial Cells Few HPF (Negative); Mucus Negative (Negative); RBC 0-2 HPF (0-2); WBC Negative HPF (0-5)
== END 2023-02-28 22:09 | disposition home or self-care (01) ==
LOC: LBO 22:13
PROVIDERS: PCP Family Medicine; Visit Provider Surgery
DX: D72.829 Elevated white blood cell count, unspecified (principal); N28.89 Other specified disorders of kidney and ureter; R10.9 Unspecified abdominal pain
CPT/HCPCS: 36415; 81003; 81015; 85025; 86140

== ENCOUNTER 2023-04-29 10:24 | Emergency (ER) | payer SELFPAY ==
[2023-04-29 10:27] VITALS: BP 183/121; PULSE 82; RESP 22; TEMP 36.6; O2SAT 98
--- NOTE | 2023-04-29 10:45 | DI.CT_ITS ---
Exam(s) CT ABDOMEN PELVIS W EXAM: CT ABDOMEN PELVIS W CLINICAL HISTORY: right flank pain, sp renal bx on sat. TECHNIQUE: Imaging Protocol: Axial computed tomography images with coronal and sagittal reformatted images were created and reviewed CONTRAST MATERIAL: Intravenous: Omnipaque 350 Contrast volume:100 ml Oral: / no COMPARISON: CT CT ABDOMEN PELVIS W from 02/27/2023 FINDINGS: ABDOMEN and PELVIS: Lung Bases: No acute findings. Liver: Normal density. No suspicious mass. Gallbladder and biliary tract: Status post cholecystectomy. No radiodense calculus or dilation. Pancreas: Normal density. No abnormal calcifications or inflammatory process. No evidence of mass. Spleen: Normal. Kidneys: Normal size, contour and axis. No radiodense stones. No obstructive uropathy. Cortical mas s posterior right kidney unchanged. No evidence of surrounding hematoma. Adrenal glands: No masses seen. Vasculature: Abdominal aorta non-dilated. Soft tissues: Unremarkable. Bladder: No gross wall thickening. No calculi.No focal mass. Bowel: No obstruction. Diverticulosis. Appendix normal. Peritoneal cavity: No ascites. No focal collection or mesenteric inflammatory response. Bones: Unremarkable for age. Reproductive organs: Status post hysterectomy. Lymph nodes: Unremarkable. IMPRESSION:: No change in posterior right renal mass. No evidence of post biopsy complication. RADIATION DOSE DELIVERED: 1,746.04mGy.cm Total DLP DATA REPOSITORY: All CT scans at this facility are submitted to the National Radiology Data Registry (NRDR) Dose Index Registry (DIR) with the [employer] [employer] (ACR). RADIATION OPTIMIZATION: All CT scans at this facility use at least one of these dose optimization te chniques: automated exposure control; mA and/or kV adjustment per patient size (includes targeted exa ms where dose is matched to clinical indication); or iterative reconstruction.
[2023-04-29 11:16] LABS: Lactate 1.2 mmol/L (0.6-1.4)
[2023-04-29] MEDS: fentaNYL 100 MCG/2 ML VIAL 75 MCG IVP (11:16)
[2023-04-29 11:22] LABS: Abs Immature Grans 0.04 10^3/uL (0.0-0.06); Absolute Basophil Count 0.04 10^3/uL (0.0-0.2); Absolute Eosinophil Count 0.07 10^3/uL (0.0-0.7); Absolute Lymphocyte Count 2.73 10^3/uL (1.2-3.4); Absolute Monocyte Count 0.62 10^3/uL (0.1-0.8); Basophils % 0.3; Eosinophils % 0.6; HCT 40.6 % (36.0-46.0); HGB 13.7 g/dL (11.2-15.7); Immature Grans % 0.3; MCH 27.8 pg (27.0-33.0); MCHC 33.7 % (32.0-36.0); MCV 82 fL (80-95); MPV 9.2 fL (8.0-11.0); Monocytes % 5.2; Neutrophils % 70.6; Platelet Count 418 10^3/uL (130-400); RBC 4.93 10^6/uL (3.93-5.22); RDW 12.3 % (11.7-14.6); RDW-SD 37.3 fL; WBC 11.85 10^3/uL (4.4-10.8)
[2023-04-29 11:24] LABS: Absolute Neutrophil Count 8.37 10^3/uL (1.2-6.7)
[2023-04-29 11:31] LABS: Lipase 22 U/L (16-77)
[2023-04-29 11:34] LABS: ALT 30 U/L (14-59); AST 9 U/L (15-37); Albumin 3.7 g/dL (3.4-5.0); Alkaline Phosphatase 76 U/L (46-116); Anion Gap 8.8 mmol/L (3-11); BUN 7 mg/dL (7-18); Bilirubin, Total 0.3 mg/dL (0.2-1.0); CO2 28.2 mmol/L (21.0-32.0); CREATININE 0.7 mg/dL (0.55-1.02); Calcium 9.5 mg/dL (8.5-10.1); Chloride 105 mmol/L (98-107); Glucose 95 mg/dL (74-106); Potassium 4.1 mmol/L (3.5-5.1); Sodium 142 mmol/L (136-145)
[2023-04-29 11:38] LABS: Bilirubin Negative (Negative); Blood Trace-lysed (Negative); Clarity Clear (Clear); Glucose Negative (Negative); Ketones Negative (Negative); Leukocyte Esterase Negative (Negative); Nitrite Negative (Negative); Urobilinogen 0.2 mg/dL (Up to 0.2)
[2023-04-29] MEDS: Normal Saline - Diluent 50 ML VIAL IJ (11:50)
[2023-04-29] MEDS: Omnipaque 350 MG/ML 100 ML BTL IJ (11:51)
[2023-04-29 11:56] LABS: Bacteria Rare HPF (Negative); Epithelial Cells Rare HPF (Negative); WBC 0-2 HPF (0-5)
[2023-04-29 11:57] LABS: C & S Indicated? No; Casts Negative LPF (Negative); Crystals Negative HPF (Negative); Mucus Negative (Negative)
--- NOTE | 2023-04-29 13:15 | DI.RAD_ITS ---
Exam(s) XR CHEST 2V PA LATERAL EXAM: XR CHEST 2V PA LATERAL CLINICAL HISTORY: S/P BX, EVAL FOR PNEUMO TECHNIQUE: 2D digital imaging was performed. COMPARISON: CR CHEST 2 VIEWS PA,LAT from 05/11/[address] ABDOMEN PELVIS W from 04/29/2023 FINDINGS: Exam is limited by poor pulmonary inflation. HEART: Normal size. Aorta: Not dilated. PULMONARY VASCULATURE: Normal. LUNGS: Clear. PLEURAL SPACE: No pleural effusion or pneumothorax. BONE:Unremarkable for age. Soft tissues: Unremarkable. IMPRESSION: No acute abnormality. DATA REPOSITORY: RADIATION DOSE DELIVERED:
[2023-04-29 13:59] VITALS: BP 182/95; PULSE 70; RESP 18; TEMP 37; O2SAT 99
--- NOTE | 2023-04-29 14:45 | ED.GENADUL_ITS ---
HPI General Date/Time Provider Initiated Documentation: 04/29/23 10:44 . HPI Narrative: This 43-year-old female presents status post biopsy of her right adrenal mass on April 26. She denies pain, she states she did not have pain for 48 hours after the biopsy. She denies any urinary symptoms. Denies fever but has had chills. Denies any known additional trauma. Denies any chest pain or shortness of breath. States the pain is exacerbated with movement. Related Data Home Medications Medication Instructions Recorded Confirmed duloxetine 60 mg capsule,delayed 60 mg PO QAM 11/17/14 04/29/23 release (Cymbalta) ranitidine HCl 150 mg tablet 150 mg PO QAM 11/17/14 04/29/23 (Zantac) diazepam 5 mg tablet (Valium) 5 mg PO TID PRN #8 tabs 04/29/23 Previous Rx's Medication Instructions Recorded diazepam 5 mg tablet (Valium) 5 mg PO TID PRN #8 tabs 04/29/23 Allergies Allergy/AdvReac Type Severity Reaction Status Date / Time cefaclor [From Ceclor] Allergy Severe Anaphylaxsi Unverified 04/29/23 10:53 s erythromycin base Allergy Severe Anaphylaxsi Unverified 04/29/23 10:53 [Erythromycin Base] s Penicillins Allergy Severe Anaphylaxsi Unverified 04/29/23 10:53 s bupropion [From Wellbutrin] Allergy Intermediate Dizziness/L Unverified 04/29/23 10:53 ightheade morphine AdvReac Intermediate Nausea Unverified 04/29/23 10:53 General Stated Complaint: FlankPain SHERI: 3 Course Vital Signs Vital signs: Vital Signs Temperature 36.6 C 04/29/23 10:27 Pulse 82 04/29/23 10:27 Respiratory Rate 22 04/29/23 10:27 Blood Pressure 183/121 H 04/29/23 10:27 Pulse Oximetry 98 04/29/23 10:27 Temperature 37 C 04/29/23 13:59 Temperature Source Temporal Artery Scan 04/29/23 10:27 Pulse 70 04/29/23 13:59 Respiratory Rate 18 04/29/23 13:59 Respiratory Effort Normal, Non-Labored 04/29/23 10:51 Blood Pressure 182/95 H 04/29/23 13:59 Blood Pressure Position Sitting 04/29/23 10:27 Pulse Oximetry 99 04/29/23 13:59 Pain Level 6 04/29/23 13:59 Lab/Test Results Lab/Test Results: 04/29/23 11:27 Blood Blood Culture - Pending 04/29/23 11:09 Blood Blood Culture - Pending Laboratory Tests Range/Units 04/29/23 04/29/23 10:37 11:09 WBC (4.4-10.8) 10^3/uL 11.85 H RBC (3.93-5.22) 10^6/uL 4.93 Hgb (11.2-15.7) g/dL 13.7 Hct (36.0-46.0) % 40.6 MCV (80-95) fL 82 MCH (27.0-33.0) pg 27.8 MCHC (32.0-36.0) % 33.7 RDW (11.7-14.6) % 12.3 Plt Count (130-400) 10^3/uL 418 H MPV (8.0-11.0) fL 9.2 Immature Gran % 0.3 Neutrophils % 70.6 Lymphocytes % 23.0 Monocytes % 5.2 Eosinophils % 0.6 Basophils % 0.3 Nucleated RBC % (0.0-0.3) % 0.0 Absolute Neutrophils (1.2-6.7) 10^3/uL 8.37 H Absolute Lymphocytes (1.2-3.4) 10^3/uL 2.73 Absolute Monocytes (0.1-0.8) 10^3/uL 0.62 Absolute Eosinophils (0.0-0.7) 10^3/uL 0.07 Absolute Basophils (0.0-0.2) 10^3/uL 0.04 VBG Lactate (0.6-1.4) mmol/L 1.2 Sodium (136-145) mmol/L 142 Potassium (3.5-5.1) mmol/L 4.1 Chloride (98-107) mmol/L 105 Carbon Dioxide (21.0-32.0) mmol/L 28.2 Anion Gap (3-11) mmol/L 8.8 BUN (7-18) mg/dL 7 Creatinine (0.55-1.02) mg/dL 0.7 Est GFR (CKD-EPI 2020) (mL/min/1.73m2) 109.30 Glucose (74-106) mg/dL 95 Calcium (8.5-10.1) mg/dL 9.5 Total Bilirubin (0.2-1.0) mg/dL 0.3 AST (15-37) U/L 9 L ALT (14-59) U/L 30 Alkaline Phosphatase (46-116) U/L 76 Total Protein (6.4-8.2) g/dL 8.0 Albumin (3.4-5.0) g/dL 3.7 Lipase (16-77) U/L 22 Urine Color (Yellow) Yellow Urine Clarity (Clear) Clear Urine pH (5-8) 7.0 Ur Specific [place] (1.005-1.025) 1.010 Urine Protein (Negative) mg/dL Negative Urine Ketones (Negative) mg/dL Negative Urine Blood (Negative) Trace-lysed H Urine Nitrite (Negative) Negative Urine Bilirubin (Negative) Negative Urine Urobilinogen (Up to 0.2) mg/dL 0.2 Ur Leukocyte Esterase (Negative) Negative Urine RBC (0-2) HPF 3-5 H Urine WBC (0-5) HPF 0-2 Ur Epithelial Cells (Negative) HPF Rare Urine Crystals (Negative) HPF Negative Urine Bacteria (Negative) HPF Rare Urine Casts (Negative) LPF Negative Urine Mucus (Negative) Negative Ur Culture Indicated? No Urine Glucose (Negative) mg/dL Negative Medical Decision Making This 43-year-old female presents status post l kidney biopsy with pain to right flank. Patient is in no acute distress, she does endorse significant tenderness, chest x-ray does not show evidence of pneumothorax and the CT does not show evidence of hematoma or any complication related related to the recent biopsy Blood pressure is elevated, she is encouraged to follow-up with her primary care physician regarding this Her labs do not show evidence of acute abnormality Hemodynamically stable, biopsy site without redness, scant bruising, no drainage, lungs clear to auscultation, alert and oriented x 4, mild anterior right abdominal pain, no rebound or guarding She does have some red blood cells in her urinalysis, she is encouraged to follow-up with her doctor regarding this She discharged home in stable condition with stable vitals, several tablets of Valium are administered for pain as needed Return precautions reviewed and patient expressed understanding Risk of addiction reviewed Quality:SDOH Health Related Social Needs: No Data to Display PFSH All Active Problems (Updated 04/29/23 @ 13:43 by GAMA Guillermo) Adrenal mass (Acute) Post-operative pain (Acute) Renal mass, right (Acute) Acute cholecystitis (Active 11/24/12) Laparoscopic cholecystectomy and intra-operative cholangiogram by Dr. Horowitz on 11-24-2012. Social History Smoking/Tobacco Use Status: Former Tobacco Use Smoking risk assessment performed?: Yes Alcohol Intake: former Drug use: Never Substance use type: does not use Do you feel safe in your relationship?: Yes Discharge Plan Disposition Patient Disposition: Home Discharge Details Clinical Impression: Post-operative pain, Adrenal mass Primary Care Provider: Tim Hadley ED Provider: Lynda Kraft Home Meds and New Rx's Prescriptions: New diazepam [Valium] 5 mg tablet 5 mg PO TID PRNQty: 8 0RF Continued Zantac 150 MG tablet 150 mg PO QAM duloxetine [Cymbalta] 60 MG capsule,delayed release(DR/EC) 60 mg PO QAM Hold Instructions: per pt Discharge Instructions Additional Instructions: Have given you several tablets of muscle relaxants which she may take as needed for pain Take ibuprofen and Tylenol as needed for discomfort at the discretion of your discharge paperwork from [facility] Please follow-up with your surgeon if you continue to have pain and return earli er should you have new or worsening complaints Stand Alone Forms: Work Release Referrals: Tim Hadley MD [Primary Care Provider] -
== END 2023-04-29 14:11 | disposition home or self-care (01) ==
PROVIDERS: Emergency Provider Physician Assistant; PCP Family Medicine
DX: G89.18 Other acute postprocedural pain (principal); R16.0 Hepatomegaly, not elsewhere classified; Z87.891 Personal history of nicotine dependence
CPT/HCPCS: 36415; 80053; 83690; 87040; 96374; 99285; 71046; 74177; 81003; 81015; 83605; 85025; 99284; J3010; J3490

== ENCOUNTER 2023-05-06 10:27 | Emergency (ER) | payer SELFPAY ==
[2023-05-06 10:36] VITALS: BP 170/119; PULSE 120; RESP 20; TEMP 37.4; O2SAT 98
--- NOTE | 2023-05-06 11:15 | DI.US_ITS ---
Exam(s) US RENAL EXAM: US RENAL CLINICAL HISTORY: s/p renal bx, now with pain on right. TECHNIQUE: Quick scale, color and spectral Doppler were used. COMPARISON: CT ABD PELVIS WITH CONTRAST from 11/17/[address] ABDOMEN PELVIS W from 04/29/2023 FINDINGS: Renal size in cm: Right: 12.4. Left: 12.2. Echogenicity: Normal. Hydronephrosis: No. Cyst or mass: There is again seen a 2 x 1.6 cm exophytic right renal mass. This can be seen on the C T scan of the abdomen and pelvis from 04/29/2023. Nephrolithiasis: No. Other findings: No evidence of a perinephric hematoma is seen. Bladder:Normal. Ureteral jets: Right: Not visualized on this examination. Left: Not visualized on this examination. Prevoid vol:249 cc Postvoid vol:14 cc Renal color flow: Symmetric and within normal limits. IMPRESSION: 1. 2 x 1.6 cm exophytic right renal mass which corresponds to the mass seen on the CT scan from 024. 2. No evidence of a perinephric hematoma is seen sonographically. DATA REPOSITORY:
[2023-05-06] MEDS: Normal Saline 1,000 ML 1000 ML IV (11:22)
[2023-05-06] MEDS: Ketorolac 15 MG/ML VIAL 7.5 MG IVP (11:23)
[2023-05-06] MEDS: Ondansetron 4 MG/2 ML VIAL IVP (11:24)
[2023-05-06 11:34] LABS: Abs Immature Grans 0.04 10^3/uL (0.0-0.06); Absolute Basophil Count 0.02 10^3/uL (0.0-0.2); Absolute Eosinophil Count 0.03 10^3/uL (0.0-0.7); Absolute Lymphocyte Count 1.28 10^3/uL (1.2-3.4); Absolute Monocyte Count 0.61 10^3/uL (0.1-0.8); Absolute Neutrophil Count 7.37 10^3/uL (1.2-6.7); Basophils % 0.2; Eosinophils % 0.3; HCT 41.5 % (36.0-46.0); HGB 14.1 g/dL (11.2-15.7); Immature Grans % 0.4; Lymphocytes % 13.7; MCH 27.5 pg (27.0-33.0); MCV 81 fL (80-95); MPV 8.7 fL (8.0-11.0); Monocytes % 6.5; Neutrophils % 78.9; Platelet Count 377 10^3/uL (130-400); RBC 5.12 10^6/uL (3.93-5.22); RDW 12.3 % (11.7-14.6); RDW-SD 36.5 fL; WBC 9.35 10^3/uL (4.4-10.8)
[2023-05-06 11:36] LABS: Lactate 1.1 mmol/L (0.6-1.4)
[2023-05-06 11:57] LABS: ALT 66 U/L (14-59); AST 52 U/L (15-37); Albumin 3.6 g/dL (3.4-5.0); Alkaline Phosphatase 86 U/L (46-116); Anion Gap 11.1 mmol/L (3-11); BUN 8 mg/dL (7-18); Bilirubin, Total 0.6 mg/dL (0.2-1.0); CO2 25.9 mmol/L (21.0-32.0); CREATININE 0.6 mg/dL (0.55-1.02); Chloride 103 mmol/L (98-107); Estimated GFR 113.44 (mL/min/1.73m2); Glucose 90 mg/dL (74-106); Lipase 21 U/L (16-77); Potassium 4.2 mmol/L (3.5-5.1); Sodium 140 mmol/L (136-145); Total Protein 7.9 g/dL (6.4-8.2)
[2023-05-06 12:18] VITALS: BP 130/100; PULSE 81; RESP 20; O2SAT 98
[2023-05-06 12:23] LABS: Bilirubin Negative (Negative); Blood Small (Negative); Clarity Clear (Clear); Glucose Negative (Negative); Ketones Negative (Negative); Leukocyte Esterase Negative (Negative); Nitrite Negative (Negative); Specific Gravity 1.015 (1.005-1.025); Urobilinogen 0.2 mg/dL (Up to 0.2)
[2023-05-06 12:35] LABS: Bacteria Few HPF (Negative); Epithelial Cells Few HPF (Negative); WBC Negative HPF (0-5)
[2023-05-06 13:57] VITALS: BP 132/98; PULSE 88; RESP 17; TEMP 36.7; O2SAT 99
[2023-05-06 16:16] LABS: C & S Indicated? No
--- NOTE | 2023-05-07 08:13 | ED.GENADUL_ITS ---
HPI General Date/Time Provider Initiated Documentation: 05/06/23 10:47 . HPI Narrative: This 43-year-old female presents for right flank pain, similar presentation to her visit last week She is status post renal biopsy for a mass 2 weeks prior to this assessment. She states she presents with the same pain for which she was evaluated last week. She states that she has had chills, she denies known fever. Denies chance of . Denies illicit drug use denies radicular pain denies any known trauma. Denies hematuria or dysuria. Denies chest pain or shortness of breath. Denies known exacerbating or alleviating factors. States she is yet to follow-up regarding the results of her biopsy. Denies any rashes or lesions. Related Data Home Medications Medication Instructions Recorded Confirmed duloxetine 60 mg capsule,delayed 60 mg PO QAM 11/17/14 05/06/23 release (Cymbalta) diazepam 5 mg tablet (Valium) 5 mg PO TID PRN #8 tabs 04/29/23 05/06/23 omeprazole 20 mg capsule,delayed 20 mg PO DAILY 05/06/23 05/06/23 release prochlorperazine maleate 10 mg 10 mg PO Q8H PRN #10 tabs 05/06/23 tablet (Compazine) Previous Rx's Medication Instructions Recorded diazepam 5 mg tablet (Valium) 5 mg PO TID PRN #8 tabs 04/29/23 prochlorperazine maleate 10 mg 10 mg PO Q8H PRN #10 tabs 05/06/23 tablet (Compazine) Allergies Allergy/AdvReac Type Severity Reaction Status Date / Time cefaclor [From Ceclor] Allergy Severe Anaphylaxsi Unverified 05/06/23 10:39 s erythromycin base Allergy Severe Anaphylaxsi Unverified 05/06/23 10:39 [Erythromycin Base] s Penicillins Allergy Severe Anaphylaxsi Unverified 05/06/23 10:39 s bupropion [From Wellbutrin] Allergy Intermediate Dizziness/L Unverified 05/06/23 10:39 ightheade morphine AdvReac Intermediate Nausea Unverified 05/06/23 10:39 General Stated Complaint: FlankPain SHERI: 3 Course Vital Signs Vital signs: Vital Signs Temperature 37.4 C 05/06/23 10:36 Pulse 120 H 05/06/23 10:36 Respiratory Rate 20 05/06/23 10:36 Blood Pressure 170/119 H 05/06/23 10:36 Pulse Oximetry 98 05/06/23 10:36 Temperature 36.7 C 05/06/23 13:57 Temperature Source Skin 05/06/23 10:36 Pulse 88 05/06/23 13:57 Respiratory Rate 17 05/06/23 13:57 Respiratory Effort Normal 05/06/23 10:39 Blood Pressure 132/98 H 05/06/23 13:57 Blood Pressure Position Sitting 05/06/23 10:36 Pulse Oximetry 99 05/06/23 13:57 Oxygen Delivery Method Room Air 05/06/23 12:18 Oxygen Flow Rate 0 05/06/23 12:18 Pain Level 8 05/06/23 11:31 Lab/Test Results Lab/Test Results: 05/06/23 12:35 Blood Blood Culture - Pending 05/06/23 11:15 Blood Blood Culture - Pending Laboratory Tests Range/Units 05/06/23 05/06/23 11:15 12:15 WBC (4.4-10.8) 10^3/uL 9.35 RBC (3.93-5.22) 10^6/uL 5.12 Hgb (11.2-15.7) g/dL 14.1 Hct (36.0-46.0) % 41.5 MCV (80-95) fL 81 MCH (27.0-33.0) pg 27.5 MCHC (32.0-36.0) % 34.0 RDW (11.7-14.6) % 12.3 Plt Count (130-400) 10^3/uL 377 MPV (8.0-11.0) fL 8.7 Immature Gran % 0.4 Neutrophils % 78.9 Lymphocytes % 13.7 Monocytes % 6.5 Eosinophils % 0.3 Basophils % 0.2 Nucleated RBC % (0.0-0.3) % 0.0 Absolute Neutrophils (1.2-6.7) 10^3/uL 7.37 H Absolute Lymphocytes (1.2-3.4) 10^3/uL 1.28 Absolute Monocytes (0.1-0.8) 10^3/uL 0.61 Absolute Eosinophils (0.0-0.7) 10^3/uL 0.03 Absolute Basophils (0.0-0.2) 10^3/uL 0.02 VBG Lactate (0.6-1.4) mmol/L 1.1 Sodium (136-145) mmol/L 140 Potassium (3.5-5.1) mmol/L 4.2 Chloride (98-107) mmol/L 103 Carbon Dioxide (21.0-32.0) mmol/L 25.9 Anion Gap (3-11) mmol/L 11.1 H BUN (7-18) mg/dL 8 Creatinine (0.55-1.02) mg/dL 0.6 Est GFR (CKD-EPI 2020) (mL/min/1.73m2) 113.44 Glucose (74-106) mg/dL 90 Calcium (8.5-10.1) mg/dL 9.0 Total Bilirubin (0.2-1.0) mg/dL 0.6 AST (15-37) U/L 52 H ALT (14-59) U/L 66 H Alkaline Phosphatase (46-116) U/L 86 Total Protein (6.4-8.2) g/dL 7.9 Albumin (3.4-5.0) g/dL 3.6 Lipase (16-77) U/L 21 Urine Color (Yellow) Yellow Urine Clarity (Clear) Clear Urine pH (5-8) 7.0 Ur Specific [place] (1.005-1.025) 1.015 Urine Protein (Negative) mg/dL Negative Urine Ketones (Negative) mg/dL Negative Urine Blood (Negative) Small H Urine Nitrite (Negative) Negative Urine Bilirubin (Negative) Negative Urine Urobilinogen (Up to 0.2) mg/dL 0.2 Ur Leukocyte Esterase (Negative) Negative Urine RBC (0-2) HPF 3-5 H Urine WBC (0-5) HPF Negative Ur Epithelial Cells (Negative) HPF Few Urine Crystals Not Applicable Urine Bacteria (Negative) HPF Few Urine Mucus Not Applicable Ur Culture Indicated? No Urine Glucose (Negative) mg/dL Negative POC- Test(urine) Negative Medical Decision Making Isadora Beltran presents for evaluation of right flank pain status post recent renal biopsy for mass which was found incidentally on a CT scan She followed up with general surgery regarding her findings and urology who ordered outpatient biopsy Biopsy reportedly positive for a benign tumor CT reviewed from last week which does not show acute abnormality Ultrasound was ordered of right flank for further evaluation with no acute abnormality per radiology interpretation my review Labs are reassuring Vitals have improved Afebrile, checked oral and temporal temperatures I discussed the case with Dr. Roper who does not have any additional recommendations at this time, urinalysis does not show evidence of infection, does have red blood cells, encouraged to follow-up with Dr. At this time patient is resting comfortably, see no evidence that this is an inf ection source of etiology, perhaps it could be musculoskeletal in nature and may be radicular pain from herniated disc, she is referred back to her primary care physician for outpatient additional imaging at their discretion Return precautions reviewed and patient expressed understanding Quality:SDOH Health Related Social Needs: No Data to Display PFSH All Active Problems (Updated 05/06/23 @ 12:56 by GAMA Guillermo) Acute flank pain (Acute) Adrenal mass (Acute) Post-operative pain (Acute) Renal mass, right (Acute) Acute cholecystitis (Active 11/24/12) Laparoscopic cholecystectomy and intra-operative cholangiogram by Dr. Horowitz on 11-24-2012. Social History Smoking/Tobacco Use Status: Former Tobacco Use Smoking risk assessment performed?: Yes Alcohol Intake: former Drug use: Never Substance use type: does not use Do you feel safe in your relationship?: Yes Discharge Plan Disposition Patient Disposition: Home Discharge Details Clinical Impression: Acute flank pain Primary Care Provider: Tim Hadley ED Provider: Lynda Kraft Home Meds and New Rx's Prescriptions: New prochlorperazine maleate [Compazine] 10 mg tablet 10 mg PO Q8H PRNQty: 10 0RF Continued duloxetine [Cymbalta] 60 MG capsule,delayed release(DR/EC) 60 mg PO QAM Hold Instructions: per pt diazepam [Valium] 5 mg tablet 5 mg PO TID PRNQty: 8 0RF omeprazole 20 mg capsule,delayed release(DR/EC) 20 mg PO DAILY Discharge Instructions Instructions: Flank Pain (ED) Additional Instructions: take compazine as needed for nausea and vomiting follow-up with pcp talk to your doctor regarding possible imaging of your thoracic spine motrin/tylenol as needed for pain Stand Alone Forms: Work Release Referrals: Tim Hadley MD [Primary Care Provider] - 1 day Discharge Data Discharge Date/Time-TO BE ENTERED AT DEPARTURE: 05/06/23 13:57
== END 2023-05-06 13:57 | disposition home or self-care (01) ==
PROVIDERS: Emergency Provider Physician Assistant; PCP Family Medicine
DX: R10.31 Right lower quadrant pain (principal); R51.9 Headache, unspecified; R11.0 Nausea; Z98.890 Other specified postprocedural states
CPT/HCPCS: 36415; 76770; 80053; 81025; 83690; 87040; 96361; 96374; 96375; 99284; 81003; 81015; 83605; 85025; 87086; 99283; J1885; J2405

== ENCOUNTER 2024-08-06 13:34 | Outpatient (REF) | payer SELFPAY ==
[2024-08-06 21:30] LABS: Hemoglobin A1C 5.5 % (<5.7)
[2024-08-06 21:38] LABS: Calculated LDL 247 mg/dL (<100); Cholesterol 342 mg/dL (<200); HDL Cholesterol 43 mg/dL (>or=50); TSH (W/Ref FT4) 1.92 uIU/mL (0.36-3.74); Triglyceride 263 mg/dL (<150)
== END 2024-08-06 13:35 | disposition home or self-care (01) ==
LOC: NCHCN 13:34
PROVIDERS: PCP Family Medicine; Visit Provider Nurse Practitioner Family
DX: N95.1 Menopausal and female climacteric states (principal); E66.9 Obesity, unspecified
CPT/HCPCS: 80061; 83036; 84443

== ENCOUNTER 2024-09-22 02:36 | Outpatient (CLI) | payer SELFPAY ==
--- NOTE | 2024-09-22 | DI.MAMMO_ITS ---
Exam(s) MAMMO SCREENING EXAM: MAMMO SCREENING CLINICAL HISTORY: SCREENING, Z12.31 TECHNIQUE: Mammograms were interpreted according to the usual protocol including computer analysis with CAD system, tomosynthesis and C-view imaging. COMPARISON: No exams were available for comparison. Baseline examination. FINDINGS: The breasts are composed of scattered fibroglandular densities, Breast Density category B. No suspicious masses or suspicious microcalcifications are seen. No skin thickening or abnormal axillary lymph nodes are seen. IMPRESSION: BI-RADS Category 1, Negative mammogram Yearly screening mammography is recommended. Breast Density - Category B - There are scattered areas of fibroglandular density. Breast density Category C or D implies that the patient has dense breast tissue. Dense breast tissue can make it harder to find cancer on a mammogram. Dense breast tissue is also associated with an increased risk of breast cancer. This information about the result of the mammogram report was provided to the patient to raise their awareness. Use this report when you speak with the patient about their risks for breast cancer, which includes their family history. At that time, you may recommend additional screening tests (Ultrasound or MRI) as these tests may add significant information. A negative radiographic report should not delay biopsy if a dominant or clinically suspicious mass is present. Up to ten percent of cancers are not identified on mammography. A negative report may reinforce clinical impression. Adenosis and dense breasts may obscure an underlying neoplasm. False positive reports average 6 to 10%. Patient will receive a letter notifying them of these results.
== END 2024-09-22 02:56 ==
LOC: DI 02:38
PROVIDERS: PCP Family Medicine; Visit Provider Nurse Practitioner Family
DX: Z12.31 Encounter for screening mammogram for malignant neoplasm of breast (principal); R92.323 Mammographic fibroglandular density, bilateral breasts
CPT/HCPCS: 77063; 77067